=== PATIENT | female | born 1945 | race Two or more races ===

== ENCOUNTER 2017-06-11 06:33 | Day surgery (SDC) | payer OTHER ==
[2017-06-11] MEDS ORDERED: fentaNYL 100 MCG/2 ML INJ IVP PRN (07:28)
[2017-06-11] MEDS ORDERED: GLUCAGON HCL 1 MG VIAL IVP PRN (07:28)
[2017-06-11] MEDS ORDERED: NALOXONE HCL 0.4 MG/ML INJ IVP PRN ×2 (07:28→11:01)
[2017-06-11] MEDS ORDERED: PROTAMINE SULFATE 50 MG/5 ML VIAL IVP PRN (07:28)
[2017-06-11] MEDS ORDERED: FLUMAZENIL 0.5 MG/5 ML MDV IVP PRN (07:28)
[2017-06-11] MEDS ORDERED: MIDAZOLAM 2 MG/2 ML VIAL IVP PRN (07:28)
[2017-06-11] MEDS ORDERED: ALTEPLASE 2 MG VIAL IVP PRN (07:28)
[2017-06-11] MEDS ORDERED: HEPARIN 10,000 UNIT/10 ML MDV (1,000 UNIT/ML) IVP PRN (07:28)
[2017-06-11] MEDS ORDERED: MEPERIDINE 25 MG/ML SYR IVP PRN (07:28)
[2017-06-11] MEDS ORDERED: NS 1,000 ML IV SCH (07:30)
[2017-06-11] MEDS ORDERED: MIDAZOLAM 2 MG/2 ML VIAL ONE ×2 (07:41→07:42)
[2017-06-11] MEDS ORDERED: FLUMAZENIL 0.5 MG/5 ML MDV IVP ONE (07:41)
[2017-06-11] MEDS ORDERED: NALOXONE HCL 0.4 MG/ML INJ ONE (07:41)
[2017-06-11] MEDS ORDERED: fentaNYL 100 MCG/2 ML INJ ONE ×2 (07:42→09:53)
[2017-06-11] MEDS ORDERED: DEXMEDETOMIDINE HCL 200 MCG in NS 50 ML IV SCH (08:00)
[2017-06-11] MEDS ORDERED: ADENOSINE 6 MG/2 ML VIAL IVP ONE (08:30)
[2017-06-11] MEDS ORDERED: LIDOCAINE 1% 5 ML SDV ONE (08:39)
[2017-06-11] MEDS ORDERED: PROPOFOL 200 MG/20 ML VIAL ONE (08:39)
--- NOTE | 2017-06-11 08:53 | CPEKG ---
Heart Rate: 106 RR Interval: 566 P-R Interval: 164 QRSD Interval: 88 QT Interval: 352 QTC Interval: 468 P Pyote: 66 QRS Pyote: 40 T Wave Pyote: 29 EKG Severity - OTHERWISE NORMAL ECG - EKG Impression: SINUS TACHYCARDIA Electronically Signed By: Finn Michel 13-Jun-2017 10:11:24
[2017-06-11 08:54] LABS: INR 1.51 (0.83-1.16); PROTIME(PATIENT) 18.4 SEC (12.0-15.0)
--- NOTE | 2017-06-11 09:05 | PDGENHP ---
History & Physical Chief Complaint: TIPS WITH STENOSIS History of Present Illness: Patient had TIPS placed at outside hospital. Recent doppler showed elevated velocity. She presents today for revision. During work up, she's found to have SVT with HR at 200+. She was otherwise asymptomatic. 12 lead EKG was obtained, and cardiology was consulted. Patient received adenosine. Pertinent Past, Social, Family History: Please see previous consult for details. Relevant Physical Exam: HR now at 101. BP 129/69. She's comfortable. 100% O2 sat. Cardiorespiratory Assessment: HR 105, rrr. lungs clear.
--- NOTE | 2017-06-11 09:08 | PDANEPAE ---
ANE Past Medical History - Cardiovascular History Hx Hypertension: Yes Hx Arrhythmias: No Hx Chest Pain: No Hx Coronary Artery / Peripheral Vascular Disease: No Hx CHF / Valvular Disease: No Hx Palpitations: No - Pulmonary History Hx COPD: No Hx Asthma/Reactive Airway Disease: No Hx Recent Upper Respiratory Infection: No Hx Oxygen in Use at Home: No Hx Sleep Apnea: No Sleep Apnea Screening Result - Last Documented: Positive - Neurologic History Hx Cerebrovascular Accident: No Hx Seizures: No Hx Dementia: No - Endocrine History Hx Diabetes: No - Renal History Hx Renal Disorders: No - Liver History Hx Hepatic Disorders: Yes - Neurological & Psychiatric Hx Hx Neurological and Psychiatric Disorders: No - Cancer History Hx Cancer: No - Congenital Disorder History Hx Congenital Disorders: No - GI History Hx Gastrointestinal Disorders: No - Chronic Pain History Chronic Pain: No ANE Review of Systems Review of Systems: - Exercise capacity METS (RN): 4 METS ANE Patient History - Home Medications Home Medications: Alendronate Sodium 670 mg DAILY 06/07/17 [Last Taken Unknown] Levothyroxine 25 mcg DAILY 06/07/17 [Last Taken Unknown] - Smoking Hx Smoking Status: Former smoker ANE Labs/Vital Signs - Labs Result Diagrams: 06/11/17 08:10 06/11/17 08:10 - Vital Signs Blood Pressure: 67/50 Respiratory Rate: 18 O2 Sat (%): 97 Height: 157.48 cm Weight: 124 kg ANE Physical Exam - Airway Neck exam: FROM Mallampati Score: Class 2 Mouth exam: poor dentition - Pulmonary Pulmonary: no respiratory distress - Cardiovascular Cardiovascular: tachycardia - ASA Status ASA Status: III ANE Anesthesia Plan Total IV Anesthesia: Yes Urgent/Emergent Case: Quang alan completed preop but documented later for safe timely pt care
--- NOTE | 2017-06-11 09:08 | POSTANESTH ---
Post Anesthetic Evaluation Cardiovascular Status: Normal, Stable Respiratory Status: Similar to Pre-op Cond. Level of Consciousness/Mental Status: Mildly Sleepy, Arousable Pain Control: Adequate, Prn Tx Ordered Nausea/Vomiting Control: Adequate, Prn Tx Ordered Complications Possibly Related to Anesthesia: None Noted
--- NOTE | 2017-06-11 09:08 | PDPROPOC ---
Sedation Plan of Care Sedation Plan of Care: vital signs stable, mental status noted, patient educated of risks, benefits, alternatives, patient can tolerate sedation ASA Classification: ASA 3 Planned drugs: fentanyl, midazolam Mallampati Score: Class 2 Mallampati Reference Image: Patient passed 3-3-2 rule?: Yes
--- NOTE | 2017-06-11 09:39 | PDANEPAE ---
ANE Past Medical History - Cardiovascular History Hx Hypertension: Yes Hx Arrhythmias: No Hx Chest Pain: No Hx Coronary Artery / Peripheral Vascular Disease: No Hx CHF / Valvular Disease: No Hx Palpitations: No - Pulmonary History Hx COPD: No Hx Asthma/Reactive Airway Disease: No Hx Recent Upper Respiratory Infection: No Hx Oxygen in Use at Home: No Hx Sleep Apnea: No Sleep Apnea Screening Result - Last Documented: Positive - Neurologic History Hx Cerebrovascular Accident: No Hx Seizures: No Hx Dementia: No - Endocrine History Hx Diabetes: No Hypothyroid: Yes Hyperthyroid: No Obesity: no - Renal History Hx Renal Disorders: No - Liver History Hx Hepatic Disorders: Yes - Neurological & Psychiatric Hx Hx Neurological and Psychiatric Disorders: No - Cancer History Hx Cancer: No - Congenital Disorder History Hx Congenital Disorders: No - GI History GERD: no Hx Gastrointestinal Disorders: No - Chronic Pain History Chronic Pain: No ANE Review of Systems Review of Systems: - Exercise capacity METS (RN): 4 METS ANE Patient History - Allergies Allergies/Adverse Reactions: No Allergies [NKDA] Allergy (Verified 06/11/17 10:52) - Home Medications Home Medications: Alendronate Sodium 670 mg DAILY 06/07/17 [Last Taken 06/05/17] Levothyroxine 25 mcg DAILY 06/07/17 [Last Taken 06/10/17] - Anes Hx Anes Hx: no prior problems - Smoking Hx Smoking Status: Former smoker - Alcohol Use Alcohol Use: Heavy - Family Anes Hx Family Anes Hx: neg - N/A ANE Labs/Vital Signs - Labs Result Diagrams: 06/11/17 08:10 06/11/17 08:10 - Vital Signs Blood Pressure: 155/81 Heart Rate: 104 Respiratory Rate: 18 O2 Sat (%): 100 Height: 157.48 cm Weight: 124 kg ANE Physical Exam - Airway Neck exam: decreased ROM Mallampati Score: Class 2 Mouth exam: dentures - Pulmonary Pulmonary: no respiratory distress, no rales or rhonchi, clear to auscultation - Cardiovascular Cardiovascular: systolic murmur, tachycardia - ASA Status ASA Status: III ANE Anesthesia Plan Anesthesia Plan: GA w LMA Total IV Anesthesia: No
[2017-06-11] MEDS ORDERED: PROPOFOL/EMULSION 500 MG/50 ML BOTTLE IV ONE (09:53)
[2017-06-11] MEDS ORDERED: REMIFENTANIL HCL 1 MG VIAL ONE (09:53)
[2017-06-11] MEDS ORDERED: LIDOCAINE 2% 5 ML SDV ONE (09:54)
[2017-06-11] MEDS ORDERED: HEPARIN 10,000 UNIT/10 ML MDV (1,000 UNIT/ML) ONE (10:06)
[2017-06-11] MEDS ORDERED: IOPAMIDOL (ISOVUE-300) 100 ML BTL ONE ×2 (10:09→10:46)
[2017-06-11] MEDS ORDERED: PHENYLEPHRINE HCL 100 MCG/ML SYR ONE (10:11)
--- NOTE | 2017-06-11 10:20 | GCON ---
[f rep st] CONSULTATION CARDIOLOGY CONSULTATION DATE OF CONSULTATION: 06/11/2017 REASON FOR CONSULTATION: New onset of supraventricular tachycardia. HISTORY OF PRESENT ILLNESS: The patient is a pleasant 71-year-old female, who presented to [facility] electively for plan for TIPS procedure in the setting of cirrhosis and liver failure, with revision of previous TIPS from several years earlier. Procedure was going to be performed this morning with Dr. Rafaela Horton. On arrival, patient was found to be in a supraventricular tachycardia, at a regular rhythm at 205 beats per minute. She could appreciate palpitations but had no complaints of dizziness, lightheadedness, near syncope or syncope. She denies any known history of diagnosis of supraventricular tachycardia in the past. She does describe intermittent episodes of a rapid heartbeat that forces her to lie down that resolves spontaneously with no associated near- syncope or syncope. She denies any cardiac history of coronary artery disease, hypertension, atrial fibrillation, atrial flutter or previous diagnosis of supraventricular tachycardia. Currently, at the time of my exam, she is in a supraventricular tachycardia at 205 beats per minute. PAST MEDICAL HISTORY: Notable for cirrhosis as outlined above, as well as a history of thyroid disease. MEDICATIONS ON ADMISSION: Include Synthroid and alendronate for osteoporosis. ALLERGIES: No known allergies to medications. EXAM: GENERAL: She is awake, alert, oriented, appropriate, and in no apparent distress. NECK: There is no evidence of JVP or carotid bruits. LUNGS: Clear to auscultation bilaterally. CARDIAC: Rapid, regular at 205 beats per minute with no murmurs, rubs, or gallops. ABDOMEN: Soft, nontender. EXTREMITIES: She has a trace bilateral pitting ankle edema. IMPRESSION/PLAN: Supraventricular tachycardia at 205 beats per minute. We will attempt cardioversion with adenosine. ADDENDUM: Adenosine was ultimately unsuccessful x2. She received 6 mg and subsequently 12 mg of IV adenosine with no response. Decision was made to pursue cardioversion. Consents were signed for both anesthesia and cardioversion. The patient underwent successful cardioversion with 200 joules on 3rd synchronized shock of biphasic energy with hinduism to a sinus tachycardia at 106 beats per minute. PLAN: 1. Patient will continue with her scheduled TIPS procedure with Dr. Rafaela Horton. 2. We will arrange for outpatient consultation with Dr. Finn Michel for consideration of supraventricular tachycardia ablation. 45 minutes spent coordinating care. /[id number]/MODL MTDD
[2017-06-11] MEDS ORDERED: LIDOCAINE 1% 300 MG/30 ML SDV ONE (10:47)
--- NOTE | 2017-06-11 10:56 | PDRADPN ---
Radiology Procedure Note Date of Procedure: 06/11/17 Radiologist: Rafeala Horton Pre-op Diagnosis: ESLD Post-op Diagnosis: SAME Indication: ELEVATED VELOCITY OF TIPS SHUNT Procedure: TIPS SHUNT EVALUATION Finding(s): NO STENOSIS. NO GRADIENT. NO VARICES. Inf/Abcess present in the surg proc area at time of surgery?: No Complications: NONE
[2017-06-11] MEDS ORDERED: epHEDrine SULFATE 10 MG/ML SYR IVP PRN (11:01)
[2017-06-11] MEDS ORDERED: PROMETHAZINE HCL 25 MG/ML INJ IVP PRN (11:01)
[2017-06-11] MEDS ORDERED: NS 500 ML IV PRN (11:01)
[2017-06-11] MEDS ORDERED: PHENYLEPHRINE HCL 100 MCG/ML SYR IVP PRN (11:01)
[2017-06-11] MEDS ORDERED: ONDANSETRON 4 MG/2 ML VIAL IVP PRN (11:01)
--- NOTE | 2017-06-11 11:02 | POSTANESTH ---
Post Anesthetic Evaluation Cardiovascular Status: Normal, Stable Respiratory Status: Normal, Stable Level of Consciousness/Mental Status: Can Participate in Eval Pain Control: Adequate, Prn Tx Ordered Nausea/Vomiting Control: Adequate, Prn Tx Ordered Complications Possibly Related to Anesthesia: None Noted
[2017-06-11 12:15] VITALS: BP 135/78
--- NOTE | 2017-06-11 12:28 | CPEKG ---
Heart Rate: 191 RR Interval: 314 P-R Interval: 181 QRSD Interval: 84 QT Interval: 264 QTC Interval: 471 P Hollywood: 0 QRS [place]: 57 T Wave Hollywood: 5 EKG Severity - ABNORMAL ECG - EKG Impression: SUPRAVENTRICULAR TACHYCARDIA EKG Impression: ST DEPRESSION, PROBABLY RATE RELATED Electronically Signed By: Finn Michel 13-Jun-2017 10:11:32
--- NOTE | 2017-07-10 11:30 | CPR ---
[f rep st] NONINVASIVE CARDIAC PROCEDURE REPORT DATE OF PROCEDURE: 06/11/2017 PROCEDURE PERFORMED: Cardioversion. INDICATION FOR PROCEDURE: Sustained supraventricular tachycardia at 205 beats per minute unresponsiv e to multiple doses of adenosine at both 6 and 12 mg. SUMMARY: The patient is a pleasant 71-year-old female who presented to [facility] on Sunday, June 11, 2017 in anticipation of TIPS procedure in the setting of cirrhosis and liver failure, with Dr. Rafaela Horton. Upon arrival in the [facility], she was found to be in a sustained supraventri cular tachycardia at 205 beats per minute. I was consulted to evaluate urgently. Adenosine was given initially of 6 mg and repeat dose of 12 mg . She ultimately had a 3rd dose of 12 mg without conversion to sinus rhythm. In the setting of sust ained supraventricular tachycardia at 205 beats per minute, decision was made to pursue cardioversion . Anesthesia was consulted. Consents were consigned for both anesthesia as well as cardioversion. DESCRIPTION OF PROCEDURE: After appropriate consents were signed for both anesthesia and cardioversi on, patient underwent cardioversion with 200 joules and returned to normal sinus rhythm after a third shock of synchronized biphasic energy with mormon of a sinus tachycardia at 106 beats per minut e. PLAN: 1. Patient will continue with her planned TIPS procedure. 2. Patient will be scheduled for followup with Dr. Finn Michel for consideration of SVT ablation. /[id number]/MODL
== END 2017-06-11 12:05 | disposition home or self-care (01) ==
LOC: FIMAGING 06:33
PROVIDERS: ATTEND Radiology Diagnostic Radiology
PROC: 5A2204Z Restoration of Cardiac Rhythm, Single (ICD-10-PCS; principal; 2017-06-11 09:51)
PROC: 06H Lower Veins, Insertion (ICD-10-PCS; principal; 2017-06-11 09:51)
DX: I47.1 Supraventricular tachycardia (principal); Z96.89 Presence of other specified functional implants
CPT/HCPCS: 36011; 75885; 92960; 93005; C1758; C1769; C1887; C1894; J0153; J1644; J2250; J2310; J2370; J2704; J3010; Q9967